=== PATIENT | male | born 1995 | race Caucasian/White ===

== ENCOUNTER 2024-02-09 19:14 | Emergency (ER) | payer OTHER ==
[2024-02-09 19:52] VITALS: BP 118/76; PULSE 76; RESP 16; TEMP 97.7; BMI 23.5
== END 2024-02-09 20:05 | disposition home or self-care (01) ==
LOC: FER 19:14
DX: S09.90XA Unspecified injury of head, initial encounter (principal); R11.0 Nausea; W21.07XA Struck by softball, initial encounter; Y93.64 Activity, baseball
CPT/HCPCS: 99282-25